=== PATIENT | male | born 1945 | race Caucasian/White ===

== ENCOUNTER → 2022-02-10 13:53 | Outpatient (CLI) | payer MEDICARE, SELFPAY ==
--- NOTE | 2022-02-10 | DI.MRI.S_ITS ---
PROCEDURE: MR HAND LT WO CON INDICATIONS: Other synovitis and tenosynovitis TECHNIQUE: Noncontrast coronal T1 spin echo and T2 fast spin echo with fat saturation, axial proton density fast spin echo and T2 fast spin echo with fat saturation, sagittal T1 spin echo and STIR through the hand and fingers. COMPARISON: [facility], CR, XR FINGER(S) LEFT, 09/22/2021, 11:17. [facility], CR, XR HAND 3+ VIEWS LEFT, 01/20/2022, 9:30. FINDINGS: Image quality: Excellent. Bones: The bones are normally aligned, without marrow contusions or fractures. No intra-osseous lesions. 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 Subcortical cystic area involving radial aspect of 3rd metacarpal head is seen. Tiny subcortical T2 hyperintense areas involving volar aspect of proximal capitate and ulnar aspect of trapezoid are seen. Interphalangeal joint(s): The accessory and proper collateral ligaments appear intact. The volar plate demonstrates normal morphology. The extensor central slips appear intact on sagittal images. Metacarpophalangeal joint(s): The accessory and proper collateral ligaments appear intact, as well as the volar plate and adjacent deep transverse metacarpal ligaments. The sagittal bands of the extensor lima appear normal. Extensor apparatus: The central slips insert normally on the middle phalangeal base. The conjoint and terminal tendons insert normally on the distal phalangeal bases. More proximal portions of the extensor tendons also appear normal. Flexor apparatus: The flexor digitorum superficialis and profundus tendons of the 3rd digit both appear thickened with fluid distending flexor tendon sheath and thickened synovial lining suggestive of extensive tenosynovitis extending from proximal carpal row to its distal insertion on 3rd distal phalangeal base. Rest of the extensor tendons are intact. The annular and cruciform pulleys appear grossly intact. Soft tissues: Diffuse soft tissue swelling surrounding 3rd digit particularly around 3rd PIP joint is seen. Visualized muscles demonstrate normal bulk and internal signal. No intramuscular masses identified. Possible tiny ganglion cyst over dorsal aspect of wrist between capitate and hamate is seen and measures 4 x 4 mm in size. IMPRESSION: 1. Diffuse soft tissue swelling surrounding 3rd finger particularly around 3rd PIP joint. 2. Moderate to severe tenosynovitis involving flexor tendon of 3rd digit extending from proximal carpal rule to its distal insertion on 3rd distal phalangeal base. No evidence of tendon rupture. Extensor tendons are intact. 3. Subcortical T2 hyperintense areas involving 3rd metacarpal head, proximal capitate and trapezoid as described above concerning for subtle erosive changes secondary to inflammatory arthropathy. 4. No marrow edema. No fracture or dislocation. No evidence of osteonecrosis. 5. Suggestion of a tiny ganglion cyst over dorsal aspect of wrist joint as above. Dictated by: Gokul Maloney M.D. on 02/10/2022 at 21:21 Approved by: Gokul Maloney M.D. on 02/10/2022 at 21:29
== END ==
PROVIDERS: PCP Internal Medicine; Referring Provider Orthopaedic Surgery; Visit Provider Orthopaedic Surgery
DX: M65.842 Other synovitis and tenosynovitis, left hand (principal); M65.849 Other synovitis and tenosynovitis, unspecified hand
CPT/HCPCS: 73218

== ENCOUNTER → 2022-02-23 09:08 | Outpatient (CLI) | payer MEDICARE, SELFPAY ==
[2022-02-23 09:41] LABS: COVID19 -Nasal RAPID Negative (Negative)
== END ==
PROVIDERS: PCP Internal Medicine; Referring Provider Orthopaedic Surgery; Visit Provider Orthopaedic Surgery
DX: Z20.822 Contact with and (suspected) exposure to COVID-19 (principal)
CPT/HCPCS: 87635; C9803

== ENCOUNTER 2022-02-26 09:17 | Day surgery (SDC) | payer MEDICARE, SELFPAY ==
[2022-02-25 14:38] VITALS: BMI 27.2
--- NOTE | 2022-02-26 | PATH_ITS ---
[facility] Accession Number: [id number] . 01 Material submitted: . finger - LEFT MIDDLE FINGER TENDON SHEATH . 01 Clinical history: . SDC OTHER SPECIFIED SOFT TISSUE DISORDERS . 01 Diagnosis: Soft Tissue, Left Middle Finger Tendon Sheath, Excision: Fibrous connective tissue with necrosis, severe chronic inflammation, and granulomata. Special stains GMS and AFB negative for fungal organisms and acid-fast organisms, respectively. MRV 03/03/2022 1246 Local . 01 Comment: The GMS stain is also reviewed by Dr. Elise Chacon, who concurs with the given interpretation. . 01 Electronically signed: . Matilda Rucker MD, Pathologist NPI- [id number] . 01 Gross description: . LEFT MIDDLE FINGER TENDON SHEATH: Received in formalin is 1 fragment of solares soft tissue measuring 3.5 x 1.1 x 0.7 cm. Tissue is inked. Specimen is sectioned and submitted in its entirety in 2 cassettes. /ZACARIAS 02/27/2022 2220 Local . 01 Pathologist provided ICD-10: M79.89 . 01 CPT . 588276, 933431, 611368 Performed at: 01 [facility] [address], [place], [place] [id number] MD Steven Ríos MD Phone: [phone]
[2022-02-26 10:29] VITALS: BP 108/66; PULSE 69; RESP 16; TEMP 36.5; O2SAT 98; BMI 26.5
[2022-02-26] MEDS: LACTATED RINGERS 1,000 ML 42 ML IV (10:38)
[2022-02-26 10:40] VITALS: BMI 26.5
--- NOTE | 2022-02-26 10:46 | PM.PREOP ---
Pre-operative Note Interval Note History & Physical reviewed/Exam performed by Physician: Yes Changes to H&P: No
[2022-02-26] MEDS: CEFAZOLIN 2 GM/20 ML SYRINGE IV (11:20)
--- NOTE | 2022-02-26 11:45 | SUR.OPER ---
Supine on padded OR bed, head on pillow, arms secured on padded arm boards at <90 degrees abduction, legs uncrossed, safety belt at thigh, tape over blanket over lower legs.
[2022-02-26] MEDS: BUPIVACAINE 0.25% (PF) 30 ML, EPINEPHrine 0.15 MG INJ (12:13)
--- NOTE | 2022-02-26 12:18 | PM.OP.1 ---
Operative Date/Time/Diagnoses Date of procedure: 02/26/22 Time of procedure: 11:00 Pre-op diagnosis: Left middle finger swelling Post-op diagnosis: same Procedure & Clinicians Procedure: Irrigation and debridement and extensive synovectomy left middle finger Same procedure as scheduled: Yes Indications: Left middle finger swelling with MRI findings of significant synovitis Surgeon: Ezra Dexter Click Yes if Unassisted: Yes Anesthesia Type: General Operative Notes Findings: Extensive synovitis involving flexor tendons to the middle finger from the tip of the finger in to the palm. Signs of a previous rupture to his FDS tendons to the middle finger. FDP tendon was still intact. Degenerative and necrotic tissue around the middle phalanx but no sign of any obvious purulence. Findings of more of a inflammatory process than an actual infectious process. Closure Type: primary Specimen(s): other (Cultures and sensitivities sent as well as pathology of the synovial tissue around the flexor tendon ) Estimated Blood Loss (mL): 0 Tourniquet time (min): 41 Procedure in detail: On date of Service, patient was seen in the holding area where his operative site was signed and witnessed by the OR staff. Surgeries once again discussed with the patient in any remaining questions or concerns he had were answered fully. Patient was taken back to the operating theater and placed on the operating table in a supine position. Great care was taken to ensure that all bony prominences were appropriately padded. Time-out was performed verifying patient's name, procedure, and operative site. Left arm was prepped and draped in the normal sterile fashion. Elevation was used to exsanguinate the limb and a tourniquet was turned up to 250 mmHg. A Garrison incision was made starting at the tip of the finger going all the way down to the distal aspect of the carpal tunnel. Fifteen blade was used to incise the skin and fascial tissue. Sharp dissection was continued and 1 could quickly see extensive inflammatory changes involving the entire tendon sheath. Patient had quite a bit of necrotic tissue over the middle phalanx. This area was swabbed and sent for cultures and sensitivities. Sharp dissection was used to remove the soft tissue and adipose tissue around this area which was also sent to cultures and sensitivities. Pickups and tenotomies uses dissect down to find the neurovascular bundles. These were found proximally and dissected free all the way to the tip of the finger to keep out of harm's way. Once the neurovascular bundles were identified and retracted out of our surgical field sharp dissection was used to remove the extensive inflammatory changes of the synovial tissue. Synovectomy was performed and a lot of this tissue was sent for pathology as well as microbiology. While removing the inflamed synovium it was noted that patient had previously sustained a rupture of his FDS tendons. The proximal aspect was the distal aspect of the carpal tunnel. Tendon showed degenerative changes and was not amenable to repair. Sharp dissection was continued with a 15 blade until all of the inflamed tendon sheath was removed giving us a good visualization of the FDP tendons as well as removing a lot of the inflammatory changes around the attendant. Once we felt like we had done a extensive debridement of the tendon and an extensive synovectomy, the finger was then copiously irrigated. The wound was closed loosely with 5 0 nylon. Finger was cleaned, dried, and dressed. Patient was placed into a splint taken to the PACU in stable condition. Complications: none Post-operative Condition: stable Disposition: PACU Plan for aftercare: Patient will need a wound check in 1 week. Patient can see Hand therapy 1 week after surgery to begin some gentle [id number] exercises. Depending on his microbiology findings patient might need oral antibiotics.
[2022-02-26 12:25] VITALS: BP 131/74; PULSE 85; RESP 15; TEMP 35.9; O2SAT 99
[2022-02-26 12:30] VITALS: BP 118/71; PULSE 84; RESP 16; TEMP 36; O2SAT 98
[2022-02-26 12:35] VITALS: PULSE 77; RESP 10; TEMP 36.2; O2SAT 98
[2022-02-26] MEDS: HYDROCODONE/ACET 5/325 TABLET 1 TAB PO (12:36)
[2022-02-26 12:40] VITALS: BP 115/63; PULSE 80; RESP 12; TEMP 36.1; O2SAT 98
[2022-02-26 12:49] VITALS: BP 120/63; PULSE 76; RESP 16; TEMP 36.1; O2SAT 98
== END 2022-02-26 13:02 | disposition home or self-care (01) ==
PROVIDERS: PCP Internal Medicine; Referring Provider Orthopaedic Surgery; Visit Provider Orthopaedic Surgery
PROC: (CPT 26145; principal; 2022-02-26 10:45)
DX: M65.9 Synovitis and tenosynovitis, unspecified (principal); J44.9 Chronic obstructive pulmonary disease, unspecified; I10 Essential (primary) hypertension; K21.9 Gastro-esophageal reflux disease without esophagitis
CPT/HCPCS: 26145; 87070; 87075; 87176; 87205; J0171; J0690; J1100; J2405; J2704; J3010

== ENCOUNTER → 2022-06-05 08:55 | Outpatient (CLI) | payer MEDICARE, SELFPAY ==
--- NOTE | 2022-06-05 | DI.MRI.S_ITS ---
PROCEDURE: MR HAND LT WO CON INDICATIONS: Stiffness of left hand, not elsewhere classified TECHNIQUE: Noncontrast coronal T1 spin echo and T2 fast spin echo with fat saturation, axial proton density fast spin echo and T2 fast spin echo with fat saturation, sagittal T1 spin echo and STIR through the hand and fingers. COMPARISON: [facility], MR, MR HAND LT WO CON, 02/10/2022, 14:05. FINDINGS: Image quality: Excellent. Bones: The bones are normally aligned, without marrow contusions or fractures. No intra-osseous lesions. [id number] osteoarthritic changes are again seen throughout left hand and wrist joints with joint space narrowing, and subchondral sclerosis. Subcortical cystic areas are again noted involving 3rd metacarpal head unchanged from prior study. Previously described tiny subcortical T2 hyperintense signal areas involving volar aspect of proximal capitate and ulnar aspect of trapezoid are again seen and unchanged. Similar subcortical T2 hyperintense signal involving proximal scaphoid and distal ulnar is also noted. Interphalangeal joint(s): The accessory and proper collateral ligaments appear intact. The volar plate demonstrates normal morphology. The extensor central slips appear intact on sagittal images. Metacarpophalangeal joint(s): The accessory and proper collateral ligaments appear intact, as well as the volar plate and adjacent deep transverse metacarpal ligaments. The sagittal bands of the extensor lima appear normal. Extensor apparatus: The central slips insert normally on the middle phalangeal base. The conjoint and terminal tendons insert normally on the distal phalangeal bases. More proximal portions of the extensor tendons also appear normal. Flexor apparatus: Again noted are significant thickening of the flexor digitorum superficialis and profundus tendons of the 3rd digit with fluid distending flexor tendon sheath and thickened synovial lining. There is interval decrease in amount of fluid within the tendon sheath . There is interval slight increase in amount of synovial thickening within tendon sheath deep to the flexor tendons. Rest of the extensor and flexor tendons are grossly intact. The jose system is grossly intact. Soft tissues: Again noted is diffuse soft tissue swelling surrounding 3rd finger particularly around 3rd proximal phalanx and PIP joint. Visualized muscles demonstrate normal bulk and internal signal. No intramuscular masses identified. Previously described possible 4 mm ganglion cyst over dorsal aspect of wrist joint is not definitely seen. IMPRESSION: 1. Diffuse soft tissue swelling surrounding 3rd finger particularly around 3rd proximal phalangeal shaft and 3rd PIP joint not significantly changed from prior study. 2. Moderate to severe tenosynovitis involving flexor tendons of 3rd digit with interval slight decrease in amount of fluid within flexor tendon sheath and interval slight worsening of synovial thickening deep to the 3rd digit flexor tendons. No tendon rupture. 3. Signal abnormalities involving 3rd metacarpal head and carpal bones are again noted unchanged from prior study and may represent subtle erosive changes secondary to inflammatory arthropathy. 4. No new area of abnormal tendon or soft tissue signal. No fracture or dislocation. Dictated by: Gokul Maloney M.D. on 06/08/2022 at 11:38 Approved by: Gokul Maloney M.D. on 06/08/2022 at 11:52
== END ==
PROVIDERS: PCP Internal Medicine; Referring Provider Orthopaedic Surgery; Visit Provider Orthopaedic Surgery
DX: M25.642 Stiffness of left hand, not elsewhere classified (principal); M65.842 Other synovitis and tenosynovitis, left hand; M79.89 Other specified soft tissue disorders
CPT/HCPCS: 73218

== ENCOUNTER → 2024-09-04 16:47 | Outpatient (CLI) | payer OTHER, SELFPAY ==
--- NOTE | 2024-09-04 16:56 | DI.RAD.S_ITS ---
PROCEDURE: XR CHEST 2V INDICATIONS: [facility] claim TECHNIQUE: 2 views of the chest were acquired. COMPARISON: None. FINDINGS: Surgical changes and devices: None. Lungs and pleura: Lungs are clear. No pleural effusions or pneumothorax. Mediastinum: Mediastinal contours are normal. Heart size is normal. Bones and chest wall: No suspicious bony abnormalities. Spine degenerative disc disease and facet arthropathy. Soft tissues appear unremarkable. IMPRESSION: No acute cardiopulmonary abnormality is seen. Dictated by: Lyndsey Lord MD, PhD on 09/05/2024 at 10:45 Approved by: Lyndsey Lord MD, PhD on 09/05/2024 at 10:45
== END ==
LOC: RAD 16:54
PROVIDERS: PCP Internal Medicine; Referring Provider Chiropractor; Visit Provider Chiropractor
DX: I25.9 Chronic ischemic heart disease, unspecified (principal)
CPT/HCPCS: 71046

== ENCOUNTER 2024-12-09 10:12 | Emergency (ER) | payer MEDICARE, SELFPAY ==
[2024-12-09] VITALS (24 sets, daily range): BP systolic 101–132; BP diastolic 58–80; PULSE 48–101; RESP 12–23; TEMP 36.4; O2SAT 93–100; BMI 26.1
--- NOTE | 2024-12-09 10:24 | DI.RAD.S_ITS ---
PROCEDURE: XR CHEST 1V INDICATIONS: chest pain TECHNIQUE: One view of the chest was acquired. COMPARISON: [facility], CR, XR CHEST 2V, 09/04/2024, 17:00. FINDINGS: Surgical changes and devices: None. Lungs and pleura: An incomplete inspiratory result is noted, causing a crowded appearance to the lung markings. No focal infiltrates are seen. No pneumothorax or significant pleural effusions are seen. Mediastinum: Mediastinal contours appear normal. Heart size is normal. Bones and chest wall: No suspicious bony lesions. Age-appropriate bony degenerative changes are seen. Overlying soft tissues appear unremarkable. IMPRESSION: Portable chest within normal limits for age. Dictated by: Jeancarlos Chilel M.D. on 12/09/2024 at 9:47 Approved by: Jeancarlos Chilel M.D. on 12/09/2024 at 9:47
--- NOTE | 2024-12-09 10:27 | EKG_ITS ---
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
[2024-12-09 11:32] LABS: Add Manual Diff / Slide Review NO; Basophils Absolute Auto 100 /uL (0-100); Basophils Percent Auto 1.2 % (0-2); Eosinophils Absolute Auto 100 /uL (0-450); Eosinophils Percent Auto 1.2 % (2-4); Hematocrit 46.2 % (41-53); Lymphocytes Absolute Auto 900 /uL (1100-4500); Lymphocytes Percent Auto 14.7 % (25-40); Mean Corpuscular HGB Conc 34.5 % (30-36); Mean Corpuscular Hemoglobin 34.6 PG (26-34); Mean Corpuscular Volume 100.3 fL (80-100); Monocytes Absolute Auto 500 /uL (0-900); Monocytes Percent Auto 7.4 % (3-14); Neutrophils Absolute Auto 4700 /uL (1500-7000); Neutrophils Percent Auto 75.5 % (50-75); Platelet Count 141 X10^3/uL (150-400); Red Blood Cell Count 4.61 X10^6/uL (4.5-5.9); Red Cell Distribution Width 16.9 % (11.6-14.8); White Blood Cell Count 6.3 X10^3/uL (4.5-11.0)
[2024-12-09 11:40] LABS: INR 1.9 (0.9-1.3)
[2024-12-09 11:43] LABS: PTT Partial Thromboplastin Tim 48 SECONDS (25.1-36.5)
[2024-12-09 11:44] LABS: Alanine Aminotransferase 28 IU/L (<50); Albumin Globulin Ratio 1.7 (1.0-2.8); Alkaline Phosphatase 55 U/L (38-126); Aspartate Aminotransferase 34 IU/L (17-59); BUN Creatinine Ratio 12.9 (6-22); Bilirubin Total 4.3 mg/dL (0.2-1.3); Blood Urea Nitrogen 18 mg/dL (9-20); Calcium 10.1 mg/dL (8.4-10.2); Carbon Dioxide 29 mmol/L (22-32); Chloride 101 mmol/L (98-107); Creatine Kinase 69 U/L (55-170); Estimated Glomerular Filt Rate 53 mL/min (>60); Globulin 2.9 g/dL (1.7-4.1); Glucose 113 mg/dL (80-110); HEMOLYSIS < 15 (0-50); Lipase 96 U/L (23-300); Magnesium 2.1 mg/dL (1.6-2.3); Potassium 4.2 mmol/L (3.4-5.1); Sodium 140 mmol/L (137-145); Total Protein 7.9 g/dL (6.3-8.2)
[2024-12-09 11:55] LABS: NT-proBNP (BNP-Adult 18+) 1920 pg/mL (<450); Troponin I < 0.012 ng/mL (0.01-0.034)
--- NOTE | 2024-12-09 13:00 | ED.DIZZY ---
HPI - Dizziness General Chief Complaint: Dizziness Stated Complaint: Spinning/Poss Vertigo Time Seen by Provider: 12/09/24 12:47 Source: patient Mode of arrival: Wheelchair History of Present Illness HPI Narrative: 78-year-old male history of atrial fibrillation on aspirin and warfarin, prior myocardial infarction in 1997, aortic aneurysm, COPD, nondiabetic neuropathy, hypertension and dyslipidemia who woke up with spinning sensation. Patient states it felt like the bed was sort of tipping. He states the room was sort of spinning when he would try to move or walk. He states it has gotten better he did take some meclizine at home. He has not really had this symptom before except maybe 20 or 30 years ago. He states he does not noticed a change with movement at this point but states it has gotten better he was still feels a little bit off balance with movement. Denies headaches no double vision, had some nausea but no vomiting. No numbness tingling or weakness in his extremities. Patient states no new shortness of breath. Patient states has had prior ganglion cyst surgery on October 30 seems to be healing well with Dr. Julain. Patient has also had a prior cholecystectomy. Does have an aortic aneurysm that is known and has annual checks. Quit smoking in 1994 occasional alcohol, no recreational drugs. Dr. Almonte is his primary care physician. Related Data Home Medications Medication Instructions Recorded Confirmed acidophilus 100 million See Rx Instructions .Route .COMPLEX 02/25/22 02/26/22 cell-pectin, citrus 10 mg capsule (Probiotic Acidophilus-Pectin) albuterol sulfate 90 mcg/actuation 2 puff inhalation Q4-6H PRN 02/25/22 02/26/22 aerosol inhaler Wheezing aspirin 81 mg tablet,delayed 81 mg PO BID 02/25/22 02/26/22 release atorvastatin 40 mg tablet 40 mg PO DAILY 02/25/22 02/26/22 calcium 500 mg (as 4 tab PO 02/25/22 carbonate)-vitamin D3 3.125 mcg (125 unit) tablet calcium 600 mg capsule 600 mg PO DAILY 02/25/22 02/26/22 dapagliflozin propanediol 10 mg 10 mg PO QAM 02/25/22 02/25/22 tablet (Farxiga) furosemide 40 mg tablet 40 mg PO DAILY 02/25/22 02/26/22 metoprolol succinate 50 mg 50 mg PO DAILY 02/25/22 02/26/22 tablet,extended release 24 hr omeprazole 20 mg tablet,delayed 20 mg PO DAILY 02/25/22 02/26/22 release potassium chloride 10 mEq 10 meq PO DAILY 02/25/22 02/26/22 tablet,extended release sacubitril 97 mg-valsartan 103 mg 1 tab PO BID 02/25/22 02/26/22 tablet (Entresto) sildenafil (pulm.hypertension) 20 20 mg PO TID 02/25/22 02/25/22 mg tablet warfarin 5 mg tablet 5 mg PO DAILY 02/25/22 02/26/22 Previous Rx's Medication Instructions Recorded hydrocodone 5 mg-acetaminophen 325 2 tab PO Q4-6H PRN pain #40 tabs 02/26/22 mg tablet meclizine 25 mg tablet 25 mg PO QID PRN dizziness #14 tabs 12/09/24 Allergies Allergy/AdvReac Type Severity Reaction Status Date / Time morphine AdvReac Intermediate Gastrointestinal Verified 12/09/24 10:24 Upset Review of Systems Review of Systems ROS Unobtainable: All systems reviewed & are unremarkable except as noted in HPI and below Patient History Medical History Heart attack Afib HX: anticoagulation HLD (hyperlipidemia) HTN (hypertension) C. difficile enteritis (02/2022) Heart disease COPD (chronic obstructive pulmonary disease) Arthritis Surgical History H/O vasectomy Hx of LASIK Hx of colostomy Hx of cholecystectomy Social History household members: spouse Smoking Status: Former smoker Smoking Status: Former smoker alcohol intake frequency: a few times a week Exam Narrative Exam Narrative: GEN: well nourished, well appearing male, alert and oriented x [default value], patient appears to be in no acute distress. HEENT: Atraumatic, pupils are equal round reactive to light, extraocular movements are intact, no nystagmus, nares are clear, TMs are clear with no fluid, there is no conjunctival pallor. Throat is clear without any exudates, erythema, tonsillar enlargement or uvular deviation, no facial droop HEART: Regular rate and rhythm without murmur, clicks, rubs. Pulses are equal in upper and lower extremities LUNGS:Lungs clear to auscultation, no wheezes, rales, crackles, chest moves symmetrically ABD:bowel sounds normal, soft, non-tender, no guarding, rebound, rigidity, no masses noted, no hepatosplenomegaly MSCL: Non-tender, no muscle atrophy, muscles strength 5/5 upper and lower extremities, full range of motion NEURO:CN 2-12 intact, sensation normal, finger nose finger test normal, heel rodriguez test normal SKIN: No rash, erythema or other skin changes Initial Vital Signs Initial Vital Signs: Vital Signs Temperature 97.6 F 12/09/24 10:14 Pulse Rate 48 L 12/09/24 10:14 Respiratory Rate 14 12/09/24 10:14 Blood Pressure 129/67 12/09/24 10:14 Pulse Oximetry 98 12/09/24 10:14 Oxygen Delivery Method Room Air 12/09/24 10:14 Scores NIH Stroke Scale Level of Conciousness: Alert, keenly responsive Ask month/age: Answers both questions correctly. Open/close eyes, close hand: Performs both tasks correctly Best gaze horizontal: Normal Visual valladares: No visual loss Facial palsy: Normal symetrical movement Left arm drift: No drift for full 10 sec Right arm drift: No drift for full 10 sec Left leg drift: No drift for full 5 sec Right leg drift: No drift for full 5 sec Limb ataxia: Absent Sensory on face/arms/legs: Normal, no sensory loss Best language: No aphasia, normal Dysarthria: Normal Extinction or inattention: No abnormality Total NIH Stroke scale score: 0 Course Orders Ordered: ED Orders 12/09/24 10:24 XR chest 1V Stat EKG-12 Lead Stat 12/09/24 11:19 Complete Blood Count AUTO DIFF Stat Comprehensive Metabolic Panel Stat Lipase Stat Magnesium Stat NT-proBNP (BNP-Adult 18+) Stat PTT Partial Thromboplastin Lalo Stat Prothrombin Time INR Stat Troponin & CK Cardiac Panel Stat 12/09/24 14:53 MR stroke Stat Vital Signs Vital signs: Vital Signs - 8 hr 12/09/24 10:14 12/09/24 10:20 12/09/24 10:21 Temperature 97.6 F Pulse Rate 48 L 67 Respiratory Rate 14 Blood Pressure 129/67 129/67 Pulse Oximetry 98 96 Oxygen Delivery Method Room Air 12/09/24 10:21 12/09/24 10:30 12/09/24 10:31 Temperature Pulse Rate 61 101 H Respiratory Rate 16 Blood Pressure 122/70 Pulse Oximetry 99 97 Oxygen Delivery Method 12/09/24 10:31 12/09/24 11:00 12/09/24 11:01 Temperature Pulse Rate 83 71 79 Respiratory Rate 14 16 14 Blood Pressure Pulse Oximetry 99 98 98 Oxygen Delivery Method 12/09/24 11:01 12/09/24 11:30 12/09/24 11:32 Temperature Pulse Rate 85 Respiratory Rate 23 Blood Pressure 109/67 112/80 Pulse Oximetry Oxygen Delivery Method 12/09/24 11:32 12/09/24 12:00 12/09/24 12:01 Temperature Pulse Rate 94 H 75 Respiratory Rate 15 13 Blood Pressure 102/61 Pulse Oximetry Oxygen Delivery Method 12/09/24 12:01 12/09/24 12:30 12/09/24 12:30 Temperature Pulse Rate 69 82 Respiratory Rate 14 17 Blood Pressure 112/72 Pulse Oximetry Oxygen Delivery Method 12/09/24 13:00 12/09/24 13:00 12/09/24 13:30 Temperature Pulse Rate 83 Respiratory Rate 12 Blood Pressure 112/66 110/63 Pulse Oximetry Oxygen Delivery Method 12/09/24 13:30 12/09/24 14:00 12/09/24 14:00 Temperature Pulse Rate 76 76 Respiratory Rate 13 13 Blood Pressure 116/60 Pulse Oximetry 97 Oxygen Delivery Method 12/09/24 14:30 12/09/24 14:30 12/09/24 15:00 Temperature Pulse Rate 69 71 Respiratory Rate 16 15 Blood Pressure 111/58 L Pulse Oximetry 93 95 Oxygen Delivery Method 12/09/24 15:00 12/09/24 15:30 12/09/24 15:30 Temperature Pulse Rate 88 Respiratory Rate 21 Blood Pressure 129/70 109/70 Pulse Oximetry 98 Oxygen Delivery Method 12/09/24 16:53 12/09/24 16:58 12/09/24 16:58 Temperature Pulse Rate 52 L 71 Respiratory Rate 14 Blood Pressure 132/63 Pulse Oximetry 94 100 Oxygen Delivery Method 12/09/24 17:00 12/09/24 17:00 Temperature Pulse Rate 82 Respiratory Rate 13 Blood Pressure 108/63 Pulse Oximetry 98 Oxygen Delivery Method MDM - Dizziness Lab Data 12/09/24 11:19 12/09/24 11:19 Labs: Lab Results 12/09/24 Range/Units 11:19 WBC 6.3 (4.5-11.0) X10^3/uL RBC 4.61 (4.5-5.9) X10^6/uL Hgb 16.0 (13.5-17.5) g/dL Hct 46.2 (41-53) % MCV 100.3 H (80-100) fL MCH 34.6 H (26-34) PG MCHC 34.5 (30-36) % RDW 16.9 H (11.6-14.8) % Plt Count 141 L (150-400) X10^3/uL Neut % (Auto) 75.5 H (50-75) % Lymph % (Auto) 14.7 L (25-40) % Toole % (Auto) 7.4 (3-14) % Eos % (Auto) 1.2 L (2-4) % Baso % (Auto) 1.2 (0-2) % Neut # (Auto) 4700 (3594-2703) /uL Lymph # (Auto) 900 L (2711-1679) /uL Toole # (Auto) 500 (0-900) /uL Eos # (Auto) 100 (0-450) /uL Baso # (Auto) 100 (0-100) /uL PT 21.0 H (9.4-12.5) SECONDS INR 1.9 H (0.9-1.3) APTT 48 H (25.1-36.5) SECONDS Sodium 140 (137-145) mmol/L Potassium 4.2 (3.4-5.1) mmol/L Chloride 101 (98-107) mmol/L Carbon Dioxide 29 (22-32) mmol/L BUN 18 (9-20) mg/dL Creatinine 1.39 H (0.66-1.25) mg/dL Estimated GFR 53 L (>60) mL/min BUN/Creatinine Ratio 12.9 (6-22) Glucose 113 H (80-110) mg/dL Calcium 10.1 (8.4-10.2) mg/dL Magnesium 2.1 (1.6-2.3) mg/dL Total Bilirubin 4.3 H (0.2-1.3) mg/dL AST 34 (17-59) IU/L ALT 28 (<50) IU/L Alkaline Phosphatase 55 (38-126) U/L Total Creatine Kinase 69 (55-170) U/L Troponin I < 0.012 (0.01-0.034) ng/mL NT-Pro-B Natriuret Pep 1920 H (<450) pg/mL Total Protein 7.9 (6.3-8.2) g/dL Albumin 5.0 (3.5-5.0) g/dL Globulin 2.9 (1.7-4.1) g/dL Albumin/Globulin Ratio 1.7 (1.0-2.8) Lipase 96 (23-300) U/L Urine Dip Bedside Urine Glucose 500 mg/dl Bedside Urine Bilirubin - Negative Bedside Urine Ketone - Negative Urine Specific [place] 1.010 Bedside Urine Occult Blood - Negative Bedside Urine pH 6.5 Bedside Urine Protein - Negative Bedside Urine Urobilinogen - Negative Bedside Urine Nitrite - Negative Bedside Urine Leukocytes - Negative Esterase ECG Data Attestation: I personally reviewed and interpreted this ECG as follows: Prior ECG tracings: available for review Interpretation: Irregularly irregular rhythm left axis deviation rate of 70 QRS of 104 QTC of 436. Nonspecific change with frequent PVCs. Patient was prior from 05/25/2017 which at that time showed sinus rhythm and incomplete right bundle-branch. [facility] Narrative Medical decision making narrative: EKG shows regular regular rhythm left axis deviation Labs show white count of 6.3 hemoglobin of 16 platelets of 141 no priors for comparison. INR is 1.9, creatinine is 1.39 electrolytes are otherwise appropriate glucose is 113 calcium is 10.1 bilirubin is 4.3 otherwise normal LFTs and lipase. BNP is 1920 with a troponin less than 0.012 Chest x-ray shows no acute change. MR brain stroke protocol negative for acute change focal irregular with proximal 50% narrowing involving each proximal vertebral artery. Spoke with patient he was outside of window for TNK with stroke woke up with symptoms has not had vertigo recently did have some meclizine that was 20 or 30 years old and took this which maybe was helpful. He states his symptoms has been improving has not NIH of 0. Discussed with the patient can proceed with head CT which was helpful for bleed or mass but MRI would be more helpful to evaluate for potential stroke. Patient is agreeable to wait for MR there is a slight a available little later this afternoon. MR is negative for stroke, there some focal irregularity patient was anticoagulated with warfarin and aspirin. Patient continues to be asymptomatic he is on a statin as well as blood pressure medication we will have him follow up with primary care to review his MR changes but feel appropriate for discharge home at this time Discharge Plan Departure Patient Disposition: Home Clinical Impression: Vertigo Instructions: DI for Vertigo Activity Restrictions/Additional Instructions: Follow up with your physician for recheck, your MRI did not show stroke you did have some irregularity with proximally 50% narrowing involving each proximal vertebral artery, share this information with your primary care physician. If you are having persistent symptoms I would recommend follow up with ENT, contact information is included below. Continue your cholesterol medication as well as your anticoagulants. You can take meclizine 1-2 tablets every 6 hours as needed for vertigo symptoms. Please return for new or worsening symptoms, severe headaches, fevers, vomiting, new numbness tingling or weakness difficulty with speech or movement or other new or concerning changes. Prescriptions: New meclizine 25 mg tablet 25 mg PO QID PRN (Reason: dizziness) Qty: 14 0RF No Action metoprolol succinate 50 mg Tablet Extended Release 24 Hr 50 mg PO DAILY potassium chloride 10 mEq Tablet Extended Release 10 meq PO DAILY aspirin 81 mg Tablet,Delayed Release (Dr/Ec) 81 mg PO BID warfarin 5 mg Tablet 5 mg PO DAILY sildenafil (pulm.hypertension) 20 mg Tablet 20 mg PO TID Rx Instructions: administer doses at least 4-6 hours apart omeprazole 20 mg Tablet,Delayed Release (Dr/Ec) 20 mg PO DAILY furosemide 40 mg Tablet 40 mg PO DAILY calcium 600 mg Capsule 600 mg PO DAILY atorvastatin 40 mg Tablet 40 mg PO DAILY albuterol sulfate 90 mcg/actuation Hfa Aerosol Inhaler 2 puff INHALATION Q4-6H PRN (Reason: Wheezing) calcium carbonate-vitamin D3 500 mg-3.125 mcg (125 unit) Tablet 4 tab PO acidophilus-pectin, citrus [Probiotic Acidophilus-Pectin] 100 million cell-10 mg Capsule See Rx Instructions .ROUTE .COMPLEX Rx Instructions: GI health Farxiga 10 mg Tablet 10 mg PO QAM Entresto 97-103 mg Tablet 1 tab PO BID hydrocodone-acetaminophen 5-325 mg tablet 2 tab PO Q4-6H PRN (Reason: pain) Qty: 40 0RF Referrals: Fox Almeida MD [Physician] - Dieter Almonte MD [Primary Care Provider] - Stand Alone Forms: Patient Portal/API/Survey
--- NOTE | 2024-12-09 14:53 | DI.MRI.S_ITS ---
PROCEDURE: MR STROKE Pre- and post-contrast brain MRI, non-contrast brain MR angiogram, pre- and postcontrast neck MR angiogram INDICATIONS: vertigo TECHNIQUE: Brain: Noncontrast axial T1 spin echo, axial T2 fast spin echo, sagittal and axial FLAIR, coronal T2 fast spin echo, axial gradient echo, axial diffusion and ADC through the brain. After the administration of contrast, axial 3D VIBE of the cranial vasculature and brain. Brain MRA: Non-contrast 3-D time of flight MR angiogram, with multiple qigvsdp-apxuehbhx-yyptrdrtvb (MIP) reformats performed. Neck MRA: Axial and sagittal TruFISP through the neck. Coronal dynamic MR angiogram during administration of contrast in the arterial and venous phases, with 3-dimenstional hghwfeu-bicsoxzis-tsaihqekiq (MIP) reformats constructed from subtraction images. COMPARISON: [facility], CR, XR CHEST 1V, 12/09/2024, 10:21. FINDINGS: Image quality: Excellent. BRAIN: CSF spaces: Ventricles are normal in size and shape. Basal cisterns are patent. No extra-axial fluid collections. Brain: No intracranial bleeds or mass effects. Hickman-white matter interface is normal. Diffusion weighted images show no acute infarct. Brainstem appears normal. Normal intravascular flow voids are present. No abnormal intracranial enhancement. Note is made of age-appropriate brain parenchymal volume loss and chronic small vessel ischemic changes. In this patient with this given history, scrutiny is given to cerebellopontine angle cisterns and to the internal auditory canals. To the limits of this standard protocol study, no masses or abnormal enhancement can be seen within these regions. Skull and face: Calvarial marrow signal is normal. Orbits appear normal. Note is made of bilateral lens replacements. Sinuses: Sinuses and mastoids are clear. BRAIN MR ANGIOGRAM: Anterior circulation: Intracranial internal carotid arteries are normal in size and enhancement. The flow within the paired anterior cerebral arteries is normal and symmetric. The flow within the middle cerebral arteries is normal and symmetric. The anterior communicating artery is seen. No stenoses, occlusions, or aneurysms. Posterior circulation: The visualized portions of the vertebral arteries demonstrate normal caliber, and join to form a normal appearing basilar artery. The flow within the posterior cerebral arteries is normal and symmetric. No stenoses, occlusions, or aneurysms. NECK MR ANGIOGRAM: Carotids: Great vessels demonstrate a conventional anatomy as they arise from the aortic arch. The origins of the common carotid arteries appear patent. The calibers and courses of both common carotid arteries are normal. The bifurcation regions appear normal bilaterally. The internal carotid arteries demonstrate normal course and caliber. Posterior circulation: Focal irregularity with approximately 50% narrowing can be seen involving the proximal aspects of each vertebral artery. More superior portions of both vertebral arteries demonstrate normal course and caliber, and join to form a normal appearing basilar artery. Miscellaneous: Subclavian arteries appear patent. Pre-contrast images through the neck show no soft tissue abnormalities. IMPRESSION: BRAIN MRI: No imaging explanation is found for this patient's presenting symptoms. No masses or abnormal enhancement can be seen. BRAIN MR ANGIOGRAM: No significant intracranial arterial abnormality is seen. NECK MR ANGIOGRAM: Focal irregular with approximately 50% narrowing can be seen involving each proximal vertebral artery. No significant carotid abnormality is seen. Dictated by: Jeancarlos Chilel M.D. on 12/09/2024 at 15:59 Approved by: Jeancarlos Chilel M.D. on 12/09/2024 at 16:02
== END 2024-12-09 18:30 | disposition home or self-care (01) ==
PROVIDERS: Emergency Provider Emergency Medicine; PCP Internal Medicine
DX: R42 Dizziness and giddiness (principal); R07.9 Chest pain, unspecified; R11.0 Nausea; I48.91 Unspecified atrial fibrillation; Z79.01 Long term (current) use of anticoagulants; I25.2 Old myocardial infarction; I10 Essential (primary) hypertension; E78.5 Hyperlipidemia, unspecified; J44.9 Chronic obstructive pulmonary disease, unspecified; R29.700 NIHSS score 0; Z86.79 Personal history of other diseases of the circulatory system
CPT/HCPCS: 36415; 70544; 70549; 70553; 71045; 80053; 81003; 82550; 83690; 83735; 83880; 84484; 85025; 85610; 85730; 93005; 93010; 99283; 99284; A9579